=== PATIENT | female | born 1980 | race Caucasian/White ===

== ENCOUNTER 2020-06-03 17:10 | Emergency (ER) | payer BC ==
[2020-06-03] MEDS ORDERED: Sodium Chloride 0.9% 1000 ML 1,000 ML IV STA (17:44)
[2020-06-03] MEDS ORDERED: MORPHINE SULFATE 4 MG INJ IV ONE (17:44)
[2020-06-03] MEDS ORDERED: Zofran 4 MG/2 ML VIAL IV ONE (17:44)
--- NOTE | 2020-06-03 17:51 | ERPHSYRPT ---
- History of Present Illness Historian: patient Exam Limitations: no limitations Patient Subjective Stated Complaint: PT HERE FOR LOOSE STOOLS,4-5 TODAY, COUGH, ABD PAIN. Triage Nursing Assessment: PT ALERT, WALKED IN, RESP EASY, SKIN W/D/P. FACE MASK IN PLACE, HAS OCC DRY COUGH, ABD SOFT, ABLE TO EAT AND DRINK, MOVES ALL EXT WELL, Timing/Duration: day(s) (5), gradual onset, worse Activities at Onset: rest Quality: cramping, dullness Abdominal Pain Onset Location: RUQ, LLQ, flank Pain Radiation: back Severity of Pain-Max: moderate Severity of Pain-Current: moderate Modifying Factors: Improves With: lying down. Worsens With: movement Associated Symptoms: back, diarrhea, No chest pain, No fever/chills, No nausea, No shortness of breath Previous symptoms: no prior history Hx Tetanus, Diphtheria Vaccination/Date Given: No Hx Influenza Vaccination/Date Given: No Hx Pneumococcal Vaccination/Date Given: No Immunizations Up to Date: Yes <YDUY MUÑOZ - Last Filed: 06/03/20 18:49> <ALYSON COLORADO - Last Filed: 06/03/20 21:16> - History of Present Illness Time Seen by Provider: 06/03/20 17:36 Physician History: 39 years old female presented in the ER with chief complaint of 4 to 5 days history of intermittent abdominal pain associated with loose watery stool. Patient reports dull abdominal cramping mostly in the upper quadrants and on the left flank area without any nausea or vomiting. Gets better with resting and more with activity, radiating to the lower mid back. She also complaining of generalized body aches fatigue feeling of tiredness and mild dry cough. Denies any fever or chills. Denies any known sick contact. Patient has COVID-19 swab done 3 days ago with pending result. Patient reports worsening of cramps this afternoon that made her come to the ER. (YUDY MUÑOZ) Allergies/Adverse Reactions: latex Allergy (Severe, Verified 06/03/20 17:28) Hives levofloxacin [From Levaquin] Allergy (Severe, Verified 06/03/20 17:28) Rash naproxen sodium [From Treximet] Allergy (Severe, Verified 06/03/20 17:28) Swelling of Tongue and Lips sulfamethoxazole [From Bactrim] Allergy (Severe, Verified 06/03/20 17:28) Rash sumatriptan succinate [From Treximet] Allergy (Severe, Verified 06/03/20 17:28) Swelling of Tongue and Lips trimethoprim [From Bactrim] Allergy (Severe, Verified 06/03/20 17:28) Rash Home Medications: Levothyroxine Sodium 50 Mcg [Synthroid 50 Mcg] 50 mcg PO DAILY 09/05/15 [History] Celecoxib 100 mg [celeBREX 100 MG] 1 ea DAILY 06/03/20 [History] Pramipexole Di-HCl 0.5 mg [Mirapex 0.5 MG Tablet] 1 ea DAILY 06/03/20 [History] Venlafaxine HCl [Venlafaxine HCl ER] 1 ea DAILY 06/03/20 [History] Travel Risk - International Travel Have you traveled outside of the country in past 3 weeks: No - Coronavirus Screening Are you exhibiting any of the following symptoms?: Yes Symptoms: Cough: New Onset, Vomiting/Diarrhea <YUDY MUÑOZ - Last Filed: 06/03/20 18:49> - Review of Systems Constitutional: Fatigue, Weakness Eyes: No Symptoms Ears, Nose, & Throat: No Symptoms Respiratory: Cough Cardiac: No Symptoms Abdominal/Gastrointestinal: Abdominal Pain, Diarrhea Genitourinary Symptoms: No Symptoms Musculoskeletal: Myalgias Neurological: No Symptoms Psychological: No Symptoms Endocrine: No Symptoms Hematologic/Lymphatic: No Symptoms Immunological/Allergic: No Symptoms <YUDY MUÑOZ - Last Filed: 06/03/20 18:49> - Past Medical History Pertinent Past Medical History: Yes Neurological History: Migraines ENT History: No Pertinent History Cardiac History: No Pertinent History Respiratory History: No Pertinent History Endocrine Medical History: No Pertinent History Musculoskeletal History: No Pertinent History GI Medical History: No Pertinent History History: No Pertinent History Psycho-Social History: No Pertinent History Female Reproductive Disorders: Other Other Medical History: ovary pain - Past Surgical History Past Surgical History: Yes Neuro Surgical History: No Pertinent History Cardiac: No Pertinent History Respiratory: No Pertinent History Gastrointestinal: Cholecystectomy Genitourinary: No Pertinent History Musculoskeletal: No Pertinent History Female Surgical History: Hysterectomy - Social History Smoking Status: Former smoker Exposure to second hand smoke: Yes Drug Use: none Patient Lives Alone: No - Female History Hx Last Menstrual Period: HYSTER Hx Now: No <YUDY MUÑOZ - Last Filed: 06/03/20 18:49> - Physical Exam General Appearance: no apparent distress, alert Eye Exam: PERRL/EOMI, eyes nml inspection Ears, Nose, Throat Exam: normal ENT inspection, TMs normal, pharynx normal Neck Exam: normal inspection, non-tender, supple, full range of motion Respiratory Exam: normal breath sounds, lungs clear, No chest tenderness Cardiovascular Exam: regular rate/rhythm, normal heart sounds Gastrointestinal/Abdomen Exam: soft, normal bowel sounds, tenderness (Left upper and lower quadrants) Back Exam: normal inspection, normal range of motion, No CVA tenderness Extremity Exam: normal inspection, normal range of motion Neurologic Exam: alert, oriented x 3, cooperative, 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 Skin Exam: normal color SpO2 Interpretation: normal SpO2: 99 O2 Delivery: Room Air <YUDY MUÑOZ - Last Filed: 06/03/20 18:49> - Nursing Vital Signs Nursing Vital Signs: Initial Vital Signs Temperature 98.3 F 06/03/20 17:10 Pulse Rate 105 H 06/03/20 17:10 Respiratory Rate 22 06/03/20 17:10 Blood Pressure 154/94 06/03/20 17:10 O2 Sat by Pulse Oximetry 99 06/03/20 17:10 Pain Scale Pain Intensity 0 - Course Nursing assessment & vital signs reviewed: Yes EKG Interpreted by Me: RATE (89), NORMAL AXIS, NORMAL INTERVALS, NORMAL QRS <YUDY MUÑOZ - Last Filed: 06/03/20 18:49> Ordered Tests: Active Orders 24 hr Category Date Time Status IV Insertion STAT Care 06/03/20 17:44 Active NPO (ED) STAT Care 06/03/20 17:44 Active ABDOMEN AND PELVIS W CONTRAST [CT] Stat Exams 06/03/20 17:45 Taken CHEST 1 VIEW (PORTABLE) Stat Exams 06/03/20 17:45 Taken BLOOD CULTURE Stat Lab 06/03/20 17:30 Received CBC W DIFF Stat Lab 06/03/20 17:50 Completed CMP Stat Lab 06/03/20 17:50 Completed HCG,QUALITATIVE URINE Stat Lab 06/03/20 17:51 Completed LIPASE Stat Lab 06/03/20 17:50 Completed UA W/RFX UR CULTURE Stat Lab 06/03/20 17:51 Completed Medication Summary Discontinued Medications Generic Name Dose Route Start Last Admin Trade Name Raegan PRN Reason Stop Dose Admin Sodium Chloride 1,000 mls @ 999 mls/hr 06/03/20 17:44 06/03/20 19:14 Sodium Chloride 0.9% 1000 Ml IV 06/03/20 18:44 Infused .Q1H1M STA Infusion Sodium Chloride Confirm 06/03/20 17:53 Sodium Chloride 0.9% 1000 Ml Administered 06/03/20 17:54 Dose 1,000 mls @ ud .ROUTE .STK-MED ONE Morphine Sulfate 4 mg 06/03/20 17:44 06/03/20 17:56 Morphine Sulfate 4 Mg Inj IV 06/03/20 17:45 4 mg STAT ONE Administration Morphine Sulfate Confirm 06/03/20 17:53 Morphine Sulfate 4 Mg Inj Administered 06/03/20 17:54 Dose 4 mg .ROUTE .STK-MED ONE Ondansetron HCl 4 mg 06/03/20 17:44 06/03/20 17:55 Zofran 4 Mg/2 Ml Vial IV 06/03/20 17:45 4 mg STAT ONE Administration Ondansetron HCl Confirm 06/03/20 17:53 Zofran 4 Mg/2 Ml Vial Administered 06/03/20 17:54 Dose 4 mg .ROUTE .STK-MED ONE Lab/Rad Data: Laboratory Result Diagrams 06/03/20 17:50 06/03/20 17:50 Laboratory Results 06/03/20 06/03/20 06/03/20 Range/Units 17:51 17:51 17:50 WBC (4.0-10.5) K/mm3 RBC (4.1-5.4) M/mm3 Hgb (12.0-16.0) gm/dl Hct (35-47) % MCV (78-100) fl MCH (26-32) pg MCHC (32-36) g/dl RDW (11.5-14.0) % Plt Count (150-450) K/mm3 MPV (7.5-11.0) fl Gran % (36.0-66.0) % Eos # (Auto) (0-0.5) Absolute Lymphs (auto) (1.0-4.6) Absolute Monos (auto) (0.0-1.3) Lymphocytes % (24.0-44.0) % Monocytes % (0.0-12.0) % Eosinophils % (0.00-5.0) % Basophils % (0.0-0.4) % Absolute Granulocytes (1.4-6.9) Basophils # (0-0.4) Sodium 141 (137-145) mmol/L Potassium 3.5 (3.5-5.1) mmol/L Chloride 110 H (98-107) mmol/L Carbon Dioxide 24 (22-30) mmol/L Anion Gap 10.2 (5-15) MEQ/L BUN 10 (7-17) mg/dL Creatinine 0.60 (0.52-1.04) mg/dL Estimated GFR > 60.0 ML/MIN Glucose 120 H (74-106) mg/dL Calcium 9.4 (8.4-10.2) mg/dL Total Bilirubin 0.30 (0.2-1.3) mg/dL AST 40 H (14-36) U/L ALT 56 H (0-35) U/L Alkaline Phosphatase 97 (38-126) U/L Serum Total Protein 7.1 (6.3-8.2) g/dL Albumin 4.0 (3.5-5.0) g/dL Lipase 120 (23-300) U/L Urine Color YELLOW (YELLOW) Urine Appearance SLIGHTLY CLOUDY (CLEAR) Urine pH 6.0 (5-6) Ur Specific [place] 1.018 (1.005-1.025) Urine Protein NEGATIVE (Negative) Urine Ketones NEGATIVE (NEGATIVE) Urine Blood NEGATIVE (0-5) Gabriel/ul Urine Nitrite NEGATIVE (NEGATIVE) Urine Bilirubin NEGATIVE (NEGATIVE) Urine Urobilinogen NEGATIVE (0-1) mg/dL Ur Leukocyte Esterase SMALL (NEGATIVE) Urine WBC (Auto) 3-5 (0-5) /HPF Urine RBC (Auto) NONE (0-2) /HPF U Epithel Cells (Auto) RARE (FEW) /HPF Urine Bacteria (Auto) NONE (NEGATIVE) /HPF Urine Mucus (Auto) SLIGHT (NEGATIVE) /HPF Urine Culture Reflexed NO (NO) Urine Glucose NEGATIVE (NEGATIVE) mg/dL Urine HCG, Qual NEGATIVE (Negative) 06/03/20 Range/Units 17:50 WBC 6.5 (4.0-10.5) K/mm3 RBC 4.59 (4.1-5.4) M/mm3 Hgb 13.7 (12.0-16.0) gm/dl Hct 42.3 (35-47) % MCV 92.2 (78-100) fl MCH 29.8 (26-32) pg MCHC 32.4 (32-36) g/dl RDW 13.5 (11.5-14.0) % Plt Count 319 (150-450) K/mm3 MPV 9.6 (7.5-11.0) fl Gran % 60.9 (36.0-66.0) % Eos # (Auto) 0.14 (0-0.5) Absolute Lymphs (auto) 1.84 (1.0-4.6) Absolute Monos (auto) 0.52 (0.0-1.3) Lymphocytes % 28.4 (24.0-44.0) % Monocytes % 8.0 (0.0-12.0) % Eosinophils % 2.2 (0.00-5.0) % Basophils % 0.5 (0.0-0.4) % Absolute Granulocytes 3.96 (1.4-6.9) Basophils # 0.03 (0-0.4) Sodium (137-145) mmol/L Potassium (3.5-5.1) mmol/L Chloride (98-107) mmol/L Carbon Dioxide (22-30) mmol/L Anion Gap (5-15) MEQ/L BUN (7-17) mg/dL Creatinine (0.52-1.04) mg/dL Estimated GFR ML/MIN Glucose (74-106) mg/dL Calcium (8.4-10.2) mg/dL Total Bilirubin (0.2-1.3) mg/dL AST (14-36) U/L ALT (0-35) U/L Alkaline Phosphatase (38-126) U/L Serum Total Protein (6.3-8.2) g/dL Albumin (3.5-5.0) g/dL Lipase (23-300) U/L Urine Color (YELLOW) Urine Appearance (CLEAR) Urine pH (5-6) Ur Specific Keenes (1.005-1.025) Urine Protein (Negative) Urine Ketones (NEGATIVE) Urine Blood (0-5) Gabriel/ul Urine Nitrite (NEGATIVE) Urine Bilirubin (NEGATIVE) Urine Urobilinogen (0-1) mg/dL Ur Leukocyte Esterase (NEGATIVE) Urine WBC (Auto) (0-5) /HPF Urine RBC (Auto) (0-2) /HPF U Epithel Cells (Auto) (FEW) /HPF Urine Bacteria (Auto) (NEGATIVE) /HPF Urine Mucus (Auto) (NEGATIVE) /HPF Urine Culture Reflexed (NO) Urine Glucose (NEGATIVE) mg/dL Urine HCG, Qual (Negative) <YUDY MUÑOZ - Last Filed: 06/03/20 18:49> - Progress Progress: improved Counseled pt/family regarding: lab results, diagnosis, need for follow-up, rad results <ALYSON COLORADO - Last Filed: 06/03/20 21:16> - Progress Progress Note: 06/03/20 18:57 Work-up is pending, care is transferred to Dr. [place] at shift change. (YUDY MUÑOZ) 06/03/20 21:15 differential diagnosis includes kidney stone, compression fracture, infection, UTI, triple AAA, COVID test pending - basic labs including: CBC, lipase, CMP, UA, - insert IV for fluids, pain meds, nausea control - consider imaging: CT ab/pelvis Patient feels improved with medication. Labs and CT demonstrate no obvious pathology. Patient has atelectasis in both lower lobes. Could be COVID-19. Covid test pending. Follow-up with PCP. Return here for new or changing symptoms. (ALYSON COLORADO) <YUDY MUÑOZ - Last Filed: 06/03/20 18:49> - Departure Departure Disposition: Home Critical Care Time: No <ALYSON COLORADO - Last Filed: 06/03/20 21:16> - Departure Clinical Impression: Abdominal pain, Clinical diagnosis of COVID-19 Condition: Stable Referrals: GURJIT ZARAGOZA [Primary Care Provider] - Instructions: Acute Abdomen (Belly Pain)
[2020-06-03] MEDS ORDERED: Sodium Chloride 0.9% 1000 ML 1,000 ML ONE (17:53)
[2020-06-03] MEDS ORDERED: Zofran 4 MG/2 ML VIAL ONE (17:53)
[2020-06-03] MEDS ORDERED: MORPHINE SULFATE 4 MG INJ ONE (17:53)
[2020-06-03 18:09] LABS: Absolute Neutrophil Ct (ANC) 3.96 (1.4-6.9); BASOPHIL % 0.5 % (0.0-0.4); Basophil (Absolute #) 0.03 (0-0.4); Eosinophil % 2.2 % (0.00-5.0); Eosinophil (Absolute #) 0.14 (0-0.5); Hematocrit 42.3 % (35-47); Hemoglobin 13.7 gm/dl (12.0-16.0); Lymphocyte (Absolute #) 1.84 (1.0-4.6); Lymphocytes % 28.4 % (24.0-44.0); Mean Cell Volume 92.2 fl (78-100); Mean Corpuscular Hemoglobin 29.8 pg (26-32); Mean Corpuscular Hgb Concent. 32.4 g/dl (32-36); Mean Platelet Volume 9.6 fl (7.5-11.0); Monocyte (Absolute #) 0.52 (0.0-1.3); Neutrophil % 60.9 % (36.0-66.0); Platelet Count 319 K/mm3 (150-450); Red Blood Count 4.59 M/mm3 (4.1-5.4); Red Cell Distribution Width 13.5 % (11.5-14.0); White Blood Count 6.5 K/mm3 (4.0-10.5)
[2020-06-03 18:22] LABS: ALKALINE PHOSPHATASE 97 U/L (38-126); ANION GAP 10.2 MEQ/L (5-15); BLOOD UREA NITROGEN 10 mg/dL (7-17); CHLORIDE 110 mmol/L (98-107); Calcium 9.4 mg/dL (8.4-10.2); Carbon Dioxide 24 mmol/L (22-30); EST GLOMERULAR FILTRATION RATE > 60.0 ML/MIN; Glucose 120 mg/dL (74-106); LIPASE 120 U/L (23-300); Potassium 3.5 mmol/L (3.5-5.1); SGOT/AST 40 U/L (14-36); SGPT/ALT 56 U/L (0-35); SODIUM 141 mmol/L (137-145); Total Protein 7.1 g/dL (6.3-8.2)
[2020-06-03 18:24] LABS: Appearance SLIGHTLY CLOUDY (CLEAR); Bilirubin NEGATIVE (NEGATIVE); Blood NEGATIVE Ery/ul (0-5); Epithelial Cells RARE /HPF (FEW); Glucose NEGATIVE (NEGATIVE); Ketones NEGATIVE (NEGATIVE); Leukocyte Esterase SMALL (NEGATIVE); Mucus SLIGHT /HPF (NEGATIVE); Nitrite NEGATIVE (NEGATIVE); Protein,Urine Dip NEGATIVE (Negative); Specific Gravity 1.018 (1.005-1.025); Urobilinogen NEGATIVE mg/dL (0-1)
[2020-06-03 21:24] VITALS: BP 113/66; PULSE 105; O2SAT 96
--- NOTE | 2020-06-03 22:03 | XRAY ---
Indication: Abdomen pain 1 week. Colitis. Multiple contiguous axial images obtained through the abdomen and pelvis using 80 cc Isovue 370 contrast only. Comparison: September 05, 2015. Lung bases demonstrates new small patchy airspace opacities and subsegmental atelectasis, right greater than left. No effusion. Heart is not enlarged. Noncontrasted stomach and bowel loops appear nonobstructed. Normal appendix. No abnormal bowel wall thickening or free fluid/air. Cholecystectomy and hysterectomy reported. Remaining liver, pancreas, spleen, adrenal glands, kidneys, ureters, bladder, and aorta appear unremarkable. No pathologic retroperitoneal lymphadenopathy. Osseous structures intact. Impression: 1. New bibasilar airspace opacities and subsegmental atelectasis. 2. Remaining CT abdomen/pelvis with contrast exam is negative.
--- NOTE | 2020-06-03 22:05 | XRAY ---
Indication: Cough. Comparison: April 02, 2016. Portable chest less inflated with new right lung hazy airspace opacities greatest near the base. Remaining heart, left lung, and bony thorax unremarkable.
== END 2020-06-03 21:37 | disposition home or self-care (01) ==
LOC: ED 17:10
DX: R10.9 Unspecified abdominal pain (principal); U07.1 COVID-19; R10.11 Right upper quadrant pain; R10.32 Left lower quadrant pain; R19.7 Diarrhea, unspecified; Z79.899 Other long term (current) drug therapy
CPT/HCPCS: 36000; 36415; 71045; 74177; 80053; 81001; 83690; 84703; 85025; 87040; 96360; 96374; 96375; 99284; J2270; J2405

== ENCOUNTER 2024-06-25 05:56 | Day surgery (SDC) | payer BC ==
[2024-06-25 06:29] VITALS: RESP 16
[2024-06-25 06:49] LABS: Absolute Neutrophil Ct (ANC) 5.59 x10^3/uL (1.56-6.13); BASOPHIL % 1.3 % (0.1-1.2); Basophil (Absolute #) 0.11 x10^3/uL (0.01-0.08); Eosinophil % 3.4 % (0.7-5.8); Eosinophil (Absolute #) 0.29 x10^3/uL (0.04-0.36); Hemoglobin 13.5 g/dL (11.2-15.7); IMMATURE GRAN # 0.03 x10^3u/L (0.001-0.031); IMMATURE GRAN % 0.4 % (0.001-0.429); Lymphocyte (Absolute #) 1.89 x10^3/uL (1.18-3.74); Lymphocytes % 22.1 % (19.3-51.7); Mean Cell Volume 89.6 fL (79.4-94.8); Mean Corpuscular Hemoglobin 28.8 pg (25.6-32.2); Mean Corpuscular Hgb Concent. 32.1 g/dL (32.2-35.5); Mean Platelet Volume 9.8 fL (9.4-12.3); Monocyte (Absolute #) 0.64 x10^3/uL (0.24-0.86); Monocytes % 7.5 % (4.7-12.5); Neutrophil % 65.3 % (34.0-71.1); Platelet Count 418 x10^3/uL (182-369); Red Blood Count 4.69 x10^6/uL (3.93-5.22); Red Cell Distribution Width 12.9 % (11.7-14.4); White Blood Count 8.6 x10^3/uL (3.98-10.04)
[2024-06-25 07:00] LABS: ANION GAP 12.2 MEQ/L (5-15); Calcium 9.6 mg/dL (8.4-10.2); Creatinine 1 0.83 mg/dL (0.52-1.04); EST GLOMERULAR FILTRATION RATE 88.5 ML/MIN; Potassium 3.4 mmol/L (3.5-5.1)
[2024-06-25] MEDS ORDERED: DIPRIVAN 200 MG/20 ML IV ONE ×3 (07:28→07:50)
[2024-06-25 08:28] VITALS: TEMP 98.3
[2024-06-25 08:33] VITALS: BP 126/64; PULSE 88; O2SAT 98
--- NOTE | 2024-06-26 11:07 | OP ---
SURGERY DATE/TIME: 06/25/2024 [id number] PREOPERATIVE DIAGNOSIS: Screening colonoscopy. POSTOPERATIVE DIAGNOSIS: Normal colon. PROCEDURE: Colonoscopy. SURGEON: John Lynch MD ANESTHESIA: MAC by Kolby Smith CRNA ESTIMATED BLOOD LOSS: None. SPECIMENS: None. DESCRIPTION OF PROCEDURE AND FINDINGS: After informed written consent was obtained, the patient was taken to the endoscopy suite. She was placed in the left lateral decubitus position and anesthesia was titrated to the desired level of consciousness. Digital rectal exam showed normal sphincter tone and no internal lesions. The level of the cecum was reached and verified with direct visualization of the ileocecal valve. Upon withdrawal, careful mucosal inspection revealed no gross abnormalities. Prior to withdrawal, retroflexion showed no internal lesions. Scope was removed and patient was transferred to the recovery room in good condition.
== END 2024-06-25 08:40 | disposition home or self-care (01) ==
LOC: SDC 05:56
PROVIDERS: ATTEND Family Medicine
DX: Z12.11 Encounter for screening for malignant neoplasm of colon (principal); E10.9 Type 1 diabetes mellitus without complications
CPT/HCPCS: 36415; 80048; 85025; 93005; J2704